=== PATIENT | male | born 1980 | race Caucasian/White ===

== ENCOUNTER 2017-02-15 18:12 | Emergency (ER) | payer SELFPAY ==
[~2017-02-15] VITALS: Ht 170.2 cm; Wt 88.6 kg
[2017-02-15 18:14] VITALS: BP 139/68; TEMP 98.4
[2017-02-15] MEDS ORDERED: PHENERGAN W/CO120 M1 PO (19:32)
[2017-02-15] MEDS ORDERED: ZITHROMAX Z PA250 MG PO (19:32)
[2017-02-15 19:47] VITALS: PULSE 69
[2017-02-24] MEDS ORDERED: AEROCHAMBER1 DEV PO (20:36)
[2017-02-24] MEDS ORDERED: PROAIR HFA0.09 MG/AC IH (20:36)
== END 2017-02-15 19:47 | disposition home or self-care (01) ==
LOC: COL.ER 18:12
DX: J40 Bronchitis, not specified as acute or chronic (principal)

== ENCOUNTER → 2017-02-24 | Emergency (ER) | payer SELFPAY ==
[~2017-02-24] VITALS: Ht 170.2 cm; Wt 84.1 kg
[~2017-02-24] MED LIST: AEROCHAMBER1 DEV PO; PHENERGAN W/CO120 M1 PO; PROAIR HFA0.09 MG/AC IH; ZITHROMAX Z PA250 MG PO
[2017-02-24 18:30] VITALS: TEMP 99.2
[2017-02-24 21:08] VITALS: BP 103/62; PULSE 70
== END | disposition home or self-care (01) ==
LOC: COL.ER 18:25
DX: J20.9 Acute bronchitis, unspecified (principal); R00.0 Tachycardia, unspecified

== ENCOUNTER 2017-05-12 15:32 | Outpatient (RCR) | payer OTHER | END 2017-06-01 07:49 | LOC: WSOH 15:32 | DX: M54.5 Low back pain (principal); M46.1 Sacroiliitis, not elsewhere classified ==

== ENCOUNTER 2017-06-22 22:05 | Emergency (ER) | payer SELFPAY ==
[~2017-06-22] VITALS: Ht 170.2 cm; Wt 85.5 kg
[2017-06-22 22:08] VITALS: BP 123/73; TEMP 97.8
[2017-06-22] MEDS ORDERED: ZANTAC 150MG T150 MG PO (22:10)
[2017-06-22] MEDS ORDERED: PROAIR HFA0.09 MG/AC IH (22:11)
[2017-06-22 23:44] VITALS: PULSE 56
== END 2017-06-23 00:04 | disposition home or self-care (01) ==
LOC: COL.ER 22:05
DX: R51 Headache (principal); Z87.820 Personal history of traumatic brain injury
CPT/HCPCS: J1200; J1885; J2550; J7030

== ENCOUNTER → 2017-08-10 | Outpatient (CLI) | payer SELFPAY ==
[~2017-08-10] MED LIST changes: +ZANTAC 150MG T150 MG PO
== END ==
LOC: COL.VAS 09:00
DX: I07.1 Rheumatic tricuspid insufficiency (principal); I27.0 Primary pulmonary hypertension; R00.2 Palpitations; R06.02 Shortness of breath; R51 Headache; R07.9 Chest pain, unspecified

== ENCOUNTER 2017-08-17 13:10 | Emergency (ER) | payer SELFPAY ==
[~2017-08-17] VITALS: Ht 170.2 cm; Wt 87.3 kg
[2017-08-17 13:13] VITALS: TEMP 97.7
[2017-08-17 14:00] LABS: BASO % 0.8 % (0.0-2.0); EOS % 0.8 % (0-4.0); GRAN % 57.1 % (42.2-75.2); HEMATOCRIT 44.3 % (42.0-52.0); LYMPH # 1.9 (1.2-3.4); LYMPH % 36.4 % (20.0-51.0); MEAN CELL VOLUME 90 fl (80.0-100.0); MEAN CORPUSCULAR HEMOGLOBIN 31 pg (27.0-31.0); MEAN CORPUSCULAR HGB CONC 34 g/dl (33.0-37.0); MEAN PLATELET VOLUME 10.7 fl (7.4-10.4); MONO # 0.3 (0.1-0.6); MONO % 4.7 % (1.7-9.3); PLATELET COUNT 219 K/mm3 (130-400); RED BLOOD COUNT 4.92 M/mm3 (4.20-5.60); WHITE BLOOD COUNT 5.3 K/mm3 (4.8-10.8)
[2017-08-17 14:04] LABS: PROTHROMBIN TIME 11.1 SECONDS (9.7-12.8)
[2017-08-17 14:15] LABS: ALANINE AMINOTRANSFERASE 46 U/L (21-72); ALBUMIN 5.2 gm/dL (3.5-5.0); ALKALINE PHOSPHATASE 82 U/L (50-136); ANION GAP 11 mmol/L (7-16); BILIRUBIN,TOTAL 0.8 mg/dL (0.0-1.0); BLOOD UREA NITROGEN 14 mg/dL (9-20); CARBON DIOXIDE 28 mmol/L (22-30); CHLORIDE 103 mmol/L (98-107); CREATININE, serum 0.92 mg/dL (0.66-1.25); GLUCOSE 91 mg/dL (74-106); SODIUM 142 mmol/L (137-145); TOTAL PROTEIN 8.7 gm/dL (6.4-8.2)
[2017-08-17 14:27] LABS: D-DIMER < 200.00 ng/mLDDu (200-230)
[2017-08-17 14:28] LABS: TROPONIN-I < 0.012 ng/mL (0.000-0.034)
[2017-08-17 15:07] VITALS: BP 114/77; PULSE 70
== END 2017-08-17 15:07 | disposition home or self-care (01) ==
LOC: COL.ER 13:10
PROVIDERS: Family Medicine
DX: R00.2 Palpitations (principal)

== ENCOUNTER 2017-09-17 06:03 | Emergency (ER) | payer SELFPAY ==
[~2017-09-17] VITALS: Ht 170.2 cm; Wt 86.4 kg
[~2017-09-17 06:03] MED LIST changes: +NO HOME MEDICATIONS; +PREDNISONE20 MG PO
[2017-09-17 06:06] VITALS: TEMP 98
[2017-09-17] MEDS ORDERED: ASPIRIN 81M81 MG/TA2 PO (06:08)
[2017-09-17] MEDS ORDERED: LIPITOR20 MG PO (06:09)
[2017-09-17 06:52] LABS: BASO % 0.6 % (0.0-2.0); EOS # 0.1 (0.0-0.7); EOS % 1.6 % (0-4.0); GRAN # 2.8 (1.4-6.5); GRAN % 56.2 % (42.2-75.2); HEMATOCRIT 41.3 % (42.0-52.0); HEMOGLOBIN 13.7 g/dl (13.5-18.0); LYMPH # 1.7 (1.2-3.4); LYMPH % 33.9 % (20.0-51.0); MEAN CELL VOLUME 91 fl (80.0-100.0); MEAN CORPUSCULAR HEMOGLOBIN 30 pg (27.0-31.0); MEAN CORPUSCULAR HGB CONC 33 g/dl (33.0-37.0); MEAN PLATELET VOLUME 10.5 fl (7.4-10.4); MONO # 0.4 (0.1-0.6); MONO % 7.3 % (1.7-9.3); PLATELET COUNT 175 K/mm3 (130-400); RED BLOOD COUNT 4.54 M/mm3 (4.20-5.60); REDCELL DISTRIBUTION WIDTH-CV 12.7 % (11.5-14.5)
[2017-09-17 07:03] LABS: ANION GAP 9 mmol/L (7-16); BLOOD UREA NITROGEN 19 mg/dL (9-20); CALCIUM 9.3 mg/dL (8.4-10.2); CARBON DIOXIDE 27 mmol/L (22-30); CHLORIDE 100 mmol/L (98-107); CREATININE, serum 0.95 mg/dL (0.66-1.25); GLUCOSE 106 mg/dL (74-106); POTASSIUM 3.8 mmol/L (3.4-5.0); SODIUM 136 mmol/L (137-145)
[2017-09-17 07:19] LABS: TROPONIN-I < 0.012 ng/mL (0.000-0.034)
[2017-09-17] MEDS ORDERED: TOPROL XL 25MG25 MG PO (07:37)
[2017-09-17 08:00] VITALS: BP 119/73; PULSE 78
== END 2017-09-17 08:00 | disposition home or self-care (01) ==
LOC: COL.ER 06:03
PROVIDERS: Emergency Medicine
DX: R00.2 Palpitations (principal); R00.0 Tachycardia, unspecified; E78.00 Pure hypercholesterolemia, unspecified; Z79.82 Long term (current) use of aspirin; Z98.890 Other specified postprocedural states

== ENCOUNTER → 2017-10-26 | Outpatient (CLI) | payer OTHER ==
[~2017-10-26] VITALS: Ht 170.2 cm; Wt 89.0 kg
[~2017-10-26] MED LIST changes: +ASPIRIN 81M81 MG/TA2 PO; +CENTRUM MEN'S PO; +DEXILANT30 MG PO; +FISH OIL 1000MG1 CAP PO; +INDERAL 20MG20 MG PO; +LIPITOR20 MG PO; +TOPROL XL 25MG25 MG PO
[2017-10-26 10:01] VITALS: BP 128/73; PULSE 58
== END ==
LOC: COL.RAD 09:40 → COL.CARD 10:45
DX: R07.89 Other chest pain (principal)
CPT/HCPCS: A9502; Q9967

== ENCOUNTER 2020-06-10 09:51 | Emergency (ER) | payer SELFPAY ==
[~2020-06-10] VITALS: Ht 170.2 cm; Wt 95.5 kg
[2020-06-10 09:57] VITALS: TEMP 99
[2020-06-10] MEDS ORDERED: MEDROL 4MG DOSPA4 MG PO (12:35)
[2020-06-10] MEDS ORDERED: FLEXERIL 1010 MG/TAB PO (12:35)
[2020-06-10 13:40] VITALS: BP 111/78; PULSE 61
== END 2020-06-10 13:40 | disposition home or self-care (01) ==
LOC: COL.ER 09:51
DX: M54.32 Sciatica, left side (principal); Z88.6 Allergy status to analgesic agent
CPT/HCPCS: J2360

== ENCOUNTER 2020-11-18 09:33 | Outpatient (RCR) | payer SELFPAY ==
[~2020-11-18 09:33] MED LIST changes: +FLEXERIL 1010 MG/TAB PO; +MEDROL 4MG DOSPA4 MG PO
== END 2021-02-16 | disposition still patient (30) ==
LOC: MKS.ESL.PT
DX: M54.42 Lumbago with sciatica, left side (principal)

== ENCOUNTER → 2020-11-19 | Outpatient (CLI) | payer SELFPAY | LOC: COL.CARD | DX: R00.2 Palpitations (principal) ==

== ENCOUNTER → 2020-11-22 | Outpatient (CLI) | payer SELFPAY | LOC: COL.VAS 13:30 | DX: R00.2 Palpitations (principal) ==

== ENCOUNTER → 2021-12-29 15:04 | Outpatient (RCR) | payer SELFPAY | END | disposition home or self-care (01) | LOC: MKS.ESL.PT 02-17 09:30 | DX: M54.9 Dorsalgia, unspecified (principal) ==

== ENCOUNTER 2022-05-17 12:16 | Emergency (ER) | payer SELFPAY ==
[~2022-05-17] VITALS: Ht 170.2 cm; Wt 90.9 kg
[2022-05-17 12:37] VITALS: TEMP 98.3
[2022-05-17] MEDS ORDERED: CEPHALEXIN500 M1 PO (13:53)
[2022-05-17 14:11] VITALS: BP 121/61; PULSE 67
== END 2022-05-17 14:11 | disposition home or self-care (01) ==
LOC: COL.ER 12:16
DX: S01.81XA Laceration without foreign body of other part of head, initial encounter (principal); W18.09XA Striking against other object with subsequent fall, initial encounter; Y92.814 Boat as the place of occurrence of the external cause

== ENCOUNTER → 2023-12-21 | Outpatient (CLI) | payer OTHER ==
[~2023-12-21] MED LIST changes: +BACTRIM DS 8001 TAB PO; +CEPHALEXIN500 M1 PO
== END ==
LOC: COL.RAD 06:18
DX: M51.36 Other intervertebral disc degeneration, lumbar region (principal); M48.07 Spinal stenosis, lumbosacral region